=== PATIENT | male | born 1945 | race Caucasian/White ===

== ENCOUNTER → 2020-10-26 | Outpatient (CLI) | payer MEDICARE, OTHER ==
[~2020-10-26] MED LIST: ACTOS30 MG PO; AMIODARONE HCL200 MG PO; CETIRIZINE HCL10 MG PO; CLARITIN10 MG PO; DYMISTA NASAL S23 GM; EPIPEN 2-P0.3 MG/0.3 INJ; FARXIGA10 MG PO; FLOMAX0.4 MG PO; IMODIUM CAP 2 MG2 MG PO; IPRAT-ALBUT 0.5-3 ML INH; LOPRESSOR50 MG PO; LORTAB 5-325 M1 EACH PO; MAPAP325 MG PO; NIACIN500 M1 PO; QUETIAPINE FUM100 MG PO; SINGULAIR10 MG PO; SYMBICORT 80-10.2 GM INH; VOLTAREN EC 7575 MG PO; ZOCOR40 MG PO
== END ==
LOC: CT 06:58
DX: I48.0 Paroxysmal atrial fibrillation (principal); E11.9 Type 2 diabetes mellitus without complications; I10 Essential (primary) hypertension; Z01.810 Encounter for preprocedural cardiovascular examination
CPT/HCPCS: 36415; 75635; 82565; 84520; Q9967

== ENCOUNTER 2021-09-05 17:40 | Emergency (ER) | payer MEDICARE, OTHER ==
[2021-09-05 18:26] LABS: HEMOGLOBIN 15.5 gm/dl (14.0-17.5); RED BLOOD COUNT 5.05 M/UL (4.20-5.50); WHITE BLOOD COUNT 11.9 K/UL (4.5-11.0)
[2021-09-05 18:56] LABS: BUN/CREATININE RATIO 30 (0-10)
== END 2021-09-05 19:20 | disposition short-term general hospital (02) ==
LOC: ER1 17:40
PROVIDERS: Physician Assistant
DX: S72.002A Fracture of unspecified part of neck of left femur, initial encounter for closed fracture (principal); I10 Essential (primary) hypertension; Z20.822 Contact with and (suspected) exposure to COVID-19; F17.210 Nicotine dependence, cigarettes, uncomplicated; W22.8XXA Striking against or struck by other objects, initial encounter; Y93.9 Activity, unspecified
CPT/HCPCS: 71045; 73502; 80053; 82550; 82553; 82962; 84484; 85025; 86850; 86900; 86901; 93005; 96374; 99285; J3010; U0002